=== PATIENT | male | born 1955 | race Caucasian/White ===

== ENCOUNTER 2020-09-05 21:52 | Observation (INO) | payer MEDICARE ==
[2020-09-05] MEDS ORDERED: HYDROmorphone 1 MG/ML 1 ML SYRINGE IVP STA (22:26)
[2020-09-05] MEDS ORDERED: SODIUM CHLORIDE 0.9% 1,000 ML IV STA (22:26)
[2020-09-05] MEDS ORDERED: ONDANSETRON 4 MG/2 ML VIAL IVP STA (22:26)
[2020-09-05 22:48] LABS: Basophils % (A) 1 %; Eosinophils # (A) 0.1 k/uL (0-0.7); Eosinophils % (A) 1 %; HCT 45.3 % (39.0-53.0); HGB 15.4 gm/dL (13.0-17.5); Lymphocytes # (A) 1.4 k/uL (1.0-4.8); Lymphocytes % (A) 16 %; MCH 33.3 pg (25.0-35.0); MCHC 33.9 g/dL (31.0-37.0); MCV 98.3 fL (80.0-100.0); Mean Platelet Volume 8.5; Monocytes # (A) 0.4 k/uL (0-1.0); Monocytes % (A) 5 %; Neutrophils # (A) 6.6 k/uL (1.3-7.7); Neutrophils % (A) 76 %; Platelet Count 210 k/uL (150-450); RBC 4.61 m/uL (4.30-5.90); RDW 12.6 % (11.5-15.5); WBC 8.7 k/uL (3.8-10.6)
[2020-09-05 23:04] LABS: ALT 19 U/L (4-49); AST 26 U/L (17-59); African American GFR (CKD) >90 (>60 ml/min/1.73 sqM); Albumin 4.6 g/dL (3.5-5.0); Alkaline Phosphatase 74 U/L (38-126); Anion Gap 12 mmol/L; Blood Urea Nitrogen 15 mg/dL (9-20); Calcium 9.7 mg/dL (8.4-10.2); Carbon Dioxide 22 mmol/L (22-30); Chloride 104 mmol/L (98-107); Glucose 119 mg/dL (74-99); Lipase 79 U/L (23-300); Non-African American GFR(CKD) >90 (>60 ml/min/1.73 sqM); Potassium 4.1 mmol/L (3.5-5.1); Sodium 138 mmol/L (137-145); Total Bilirubin 0.6 mg/dL (0.2-1.3); Total Protein 7.3 g/dL (6.3-8.2)
[2020-09-06 00:16] LABS: Amorphous Sediment,Urine Rare /hpf; Appearance,Urine Clear (Clear); Bilirubin,Urine Negative (Negative); Blood,Urine Negative (Negative); Color,Urine Light Yellow; Glucose,Urine (UA) Negative (Negative); Ketones,Urine 2+ (Negative); Leukocyte Esterase,Urine Trace (Negative); Nitrite,Urine Negative (Negative); Protein,Urine Negative (Negative); RBC,Urine 1 /hpf (0-5); Specific Gravity,Urine 1.023 (1.001-1.035); Urobilinogen,Urine <2.0 mg/dL (<2.0); WBC,Urine 7 /hpf (0-5)
--- NOTE | 2020-09-06 00:17 | CT ---
EXAMINATION TYPE: CT abdomen pelvis w con DATE OF EXAM: 09/05/2020 COMPARISON: None HISTORY: Abd Pain CT DLP: 549.80 mGycm Automated exposure control for dose reduction was used. CONTRAST: Performed with IV Contrast, patient injected with 100 mL of Isovue 300. Images obtained from the diaphragm to the floor the pelvis with IV contrast. Lung bases are clear of infiltrate. There is no pleural effusion. Heart size is normal. There is no p ericardial effusion. Liver spleen pancreas gallbladder appear intact. Bile ducts are not dilated. Stomach is large. There is no evidence of pancreatic mass. There is low density to centimeter left adrenal mass. Kidneys show satisfactory contrast opacificatio n. There is no hydronephrosis. There are multiple bilateral renal calculi that measure up to 7 mm. De layed images show normal renal excretion. Ureters are not dilated. There is no retroperitoneal adenop athy. Bladder distends smoothly. There is no inguinal hernia. There is no free fluid in the pelvis. There are some distended loops of jejunum in the upper abdomen with small bowel mesenteric fat strand ing. Small bowel measures up to 2.7 cm. The distal small bowel appears normal. Appendix appears ran l. Large bowel appears intact. The lumbar vertebra have normal alignment. Posterior elements are intact. Bony pelvis is intact. Sacr oiliac joints are intact. IMPRESSION: Small bowel mesenteric edema. Mildly distended fluid-filled loops of jejunum. This could relate to ga stroenteritis.
[2020-09-06] MEDS ORDERED: NALOXONE 0.4 MG/ML 1 ML VIAL IV PRN (00:39)
[2020-09-06] MEDS ORDERED: HYDROmorphone 1 MG/ML 1 ML SYRINGE IVP PRN (00:39)
[2020-09-06] MEDS ORDERED: ONDANSETRON 4 MG/2 ML VIAL IVP PRN (00:39)
--- NOTE | 2020-09-06 00:50 | ED ---
Abdominal Pain HPI - General Chief Complaint: Abdominal Pain Stated Complaint: ABD pain Time Seen by Provider: 09/05/20 22:07 Source: patient Mode of arrival: wheelchair Limitations: no limitations - History of Present Illness Initial Comments: 64 year-old male patient presents to the emergency department for evaluation for upper abdominal pain. Patient states pain started mildly at 10:00am. States it gradually worsened throughout the day. States pain is in the middle of the upper abdomen and radiates to right upper quadrant. He reports 5-6 episodes of vomiting. Denies any diarrhea or constipation. He is passing gas. Denies fevers, but states he is chilled. Denies history of abdominal surgery. States he does have history of colitis, but states that his is generally in the "very end of the colon". Patient denies any recent rash, cough, shortness of breath, chest pain, back pain, numbness, tingling, dizziness, weakness, hematuria, dysuria, ur inary urgency, urinary frequency, headache, visual changes, or any other complaints. - Related Data Home Medications Medication Instructions Recorded Confirmed Mesalamine [Lialda] 2.4 gm PO BID 09/05/20 09/05/20 Allergies Allergy/AdvReac Type Severity Reaction Status Date / Time pertussis vaccine,fluid Allergy Unknown Verified 09/05/20 22:34 Childhood Review of Systems ROS Statement: Those systems with pertinent positive or pertinent negative responses have been documented in the HPI. ROS Other: All systems not noted in ROS Statement are negative. Past Medical History Additional Past Medical History / Comment(s): colitis History of Any Multi-Drug Resistant Organisms: None Reported Past Surgical History: No Surgical Hx Reported Past Psychological History: No Psychological Hx Reported Smoking Status: Never smoker Past Alcohol Use History: Occasional Past Drug Use History: None Reported General Exam Limitations: no limitations General appearance: alert, in no apparent distress, other (Physical well- developed, well-nourished adult male patient in mild distress related to pain. Vital signs upon presentation temperature 98.0F will pulse 63, respirations 20, blood pressure 130/62, pulse ox 100% on room air.) Eye exam: Present: normal appearance, PERRL, EOMI. Absent: scleral icterus, conjunctival injection, periorbital swelling Respiratory exam: Present: normal lung sounds bilaterally. Absent: respiratory distress, wheezes, rales, rhonchi, stridor Cardiovascular Exam: Present: regular rate, normal rhythm, normal heart sounds. Absent: systolic murmur, diastolic murmur, rubs, gallop, clicks GI/Abdominal exam: Present: soft, tenderness (midepigastric), normal bowel sounds. Absent: distended, guarding, rebound, rigid Neurological exam: Present: alert, oriented X3, CN II-XII intact Psychiatric exam: Present: normal affect, normal mood Skin exam: Present: warm, dry, intact, normal color. Absent: rash Course Vital Signs 09/05/20 22:00 Temperature 98.0 F Pulse Rate 63 Respiratory 20 Rate Blood Pressure 130/62 O2 Sat by Pulse 100 Oximetry Medical Decision Making - Medical Decision Making 64 year-old male patient presenting to emergency department this evening for evaluation of midepigastric abdominal pain and vomiting. Upon arrival patient appears quite uncomfortable, shaking, sweating. Reports 5 episodes of vomiting. Physical exam revealed midepigastric and right upper quadrant tenderness. No guarding or rebound. Labs reviewed and showed normal WBC count. Elevated lactate at 3.1. No blood in the urine. CT abdomen and pelvis was obtained and showed distended jejunal loops and some mesenteric edema. Upon re-evaluation patient reports some improvement in symptoms, though still having pain. He will be admitted for repeat lactic acid and further evaluation by general surgery. I did discuss findings with the patient. He is agreeable to the plan. Case discussed with my attending Dr. Costa. - Lab Data Result diagrams: 09/05/20 22:26 09/05/20 22:26 Lab Results 09/05/20 09/05/20 09/05/20 Range/Units 22:26 22:26 22:26 WBC 8.7 (3.8-10.6) k/uL RBC 4.61 (4.30-5.90) m/uL Hgb 15.4 (13.0-17.5) gm/dL Hct 45.3 (39.0-53.0) % MCV 98.3 (80.0-100.0) fL MCH 33.3 (25.0-35.0) pg MCHC 33.9 (31.0-37.0) g/dL RDW 12.6 (11.5-15.5) % Plt Count 210 (150-450) k/uL MPV 8.5 Neutrophils % 76 % Lymphocytes % 16 % Monocytes % 5 % Eosinophils % 1 % Basophils % 1 % Neutrophils # 6.6 (1.3-7.7) k/uL Lymphocytes # 1.4 (1.0-4.8) k/uL Monocytes # 0.4 (0-1.0) k/uL Eosinophils # 0.1 (0-0.7) k/uL Basophils # 0.0 (0-0.2) k/uL Sodium 138 (137-145) mmol/L Potassium 4.1 (3.5-5.1) mmol/L Chloride 104 (98-107) mmol/L Carbon Dioxide 22 (22-30) mmol/L Anion Gap 12 mmol/L BUN 15 (9-20) mg/dL Creatinine 0.86 (0.66-1.25) mg/dL Est GFR (CKD-EPI)AfAm >90 (>60 ml/min/1.73 sqM) Est GFR (CKD-EPI)NonAf >90 (>60 ml/min/1.73 sqM) Glucose 119 H (74-99) mg/dL Plasma Lactic Acid Jovany 3.1 H* (0.7-2.0) mmol/L Calcium 9.7 (8.4-10.2) mg/dL Total Bilirubin 0.6 (0.2-1.3) mg/dL AST 26 (17-59) U/L ALT 19 (4-49) U/L Alkaline Phosphatase 74 (38-126) U/L Troponin I (0.000-0.034) ng/mL Total Protein 7.3 (6.3-8.2) g/dL Albumin 4.6 (3.5-5.0) g/dL Lipase 79 (23-300) U/L Urine Color Urine Appearance (Clear) Urine pH (5.0-8.0) Ur Specific Harrison (1.001-1.035) Urine Protein (Negative) Urine Glucose (UA) (Negative) Urine Ketones (Negative) Urine Blood (Negative) Urine Nitrite (Negative) Urine Bilirubin (Negative) Urine Urobilinogen (<2.0) mg/dL Ur Leukocyte Esterase (Negative) Urine RBC (0-5) /hpf Urine WBC (0-5) /hpf Amorphous Sediment (None) /hpf 07/30/21 07/30/21 Range/Units 22:28 22:34 WBC (3.8-10.6) k/uL RBC (4.30-5.90) m/uL Hgb (13.0-17.5) gm/dL Hct (39.0-53.0) % MCV (80.0-100.0) fL MCH (25.0-35.0) pg MCHC (31.0-37.0) g/dL RDW (11.5-15.5) % Plt Count (150-450) k/uL MPV Neutrophils % % Lymphocytes % % Monocytes % % Eosinophils % % Basophils % % Neutrophils # (1.3-7.7) k/uL Lymphocytes # (1.0-4.8) k/uL Monocytes # (0-1.0) k/uL Eosinophils # (0-0.7) k/uL Basophils # (0-0.2) k/uL Sodium (137-145) mmol/L Potassium (3.5-5.1) mmol/L Chloride (98-107) mmol/L Carbon Dioxide (22-30) mmol/L Anion Gap mmol/L BUN (9-20) mg/dL Creatinine (0.66-1.25) mg/dL Est GFR (CKD-EPI)AfAm (>60 ml/min/1.73 sqM) Est GFR (CKD-EPI)NonAf (>60 ml/min/1.73 sqM) Glucose (74-99) mg/dL Plasma Lactic Acid Jovany (0.7-2.0) mmol/L Calcium (8.4-10.2) mg/dL Total Bilirubin (0.2-1.3) mg/dL AST (17-59) U/L ALT (4-49) U/L Alkaline Phosphatase (38-126) U/L Troponin I <0.012 (0.000-0.034) ng/mL Total Protein (6.3-8.2) g/dL Albumin (3.5-5.0) g/dL Lipase (23-300) U/L Urine Color Light Yellow Urine Appearance Clear (Clear) Urine pH 8.0 (5.0-8.0) Ur Specific Harrison 1.023 (1.001-1.035) Urine Protein Negative (Negative) Urine Glucose (UA) Negative (Negative) Urine Ketones 2+ H (Negative) Urine Blood Negative (Negative) Urine Nitrite Negative (Negative) Urine Bilirubin Negative (Negative) Urine Urobilinogen <2.0 (<2.0) mg/dL Ur Leukocyte Esterase Trace H (Negative) Urine RBC 1 (0-5) /hpf Urine WBC 7 H (0-5) /hpf Amorphous Sediment Rare H (None) /hpf - Radiology Data Radiology results: report reviewed, image reviewed CT abdomen and pelvis was obtained with contrast. Report was reviewed in its entirety. Impression by Dr. De León reveal small bowel mesenteric edema. Mildly distended fluid-filled loops of jejunum. This could relate to gastroenteritis. Disposition Clinical Impression: Intractable abdominal pain Disposition: ADMITTED IP TO THIS [facility] Condition: Serious Referrals: None,Stated [Primary Care Provider] - 1-2 days Decision to Admit Reason: Admit from EC Decision Date: 09/06/20 Decision Time: 00:50
[2020-09-06] MEDS: SODIUM CHLORIDE 0.9% 1,000 ML IV SCH ×2 (01:21→11:55)
[2020-09-06 07:23] VITALS: BP 118/66; PULSE 74; RESP 16; TEMP 98
--- NOTE | 2020-09-06 08:47 | P.GSCN ---
History of Present Illness Consult date: 09/06/20 History of present illness: 64-year-old male presented to the emergency department with complaints of severe abdominal pain. He states most of the pain was in the epigastrium. He states it started approximately 10 AM yesterday and progressed throughout the day. He complains of multiple vomiting episodes and nausea as well that brought him into the hospital. He denies any significant changes in bowel function. He states that he does have a history of ulcerative colitis and does take daily mesalamine for treatment. He states he is from [place] and receives most of his medical care there. He states his last colonoscopy was 1 year ago without any significant findings. He denies any recent blood in his stool. On admission, lactic acidosis was noted slightly greater than 3. Repeat was drawn and is noted to be 1.0. He states on current exam that he is feeling 100% better. He denies any nausea or vomiting episodes. He denies any abdominal pain at this time. CT of the abdomen and pelvis revealed some mesenteric edema around the jejunum. Review of Systems All systems: negative Past Medical History Additional Past Medical History / Comment(s): colitis History of Any Multi-Drug Resistant Organisms: None Reported Past Surgical History: No Surgical Hx Reported Past Psychological History: No Psychological Hx Reported Smoking Status: Never smoker Past Alcohol Use History: Occasional Past Drug Use History: None Reported Medications and Allergies Home Medications Medication Instructions Recorded Confirmed Type Mesalamine [Lialda] 2.4 gm PO BID 09/05/20 09/05/20 History Allergies Allergy/AdvReac Type Severity Reaction Status Date / Time pertussis vaccine,fluid Allergy Unknown Verified 09/05/20 22:34 Childhood Surgical - Exam Osteopathic Statement: *. No significant issues noted on an osteopathic structural exam other than those noted in the History and Physical/Consult. Vital Signs Temp Pulse Resp BP Pulse Ox 98.0 F 63 20 130/62 100 09/05/20 22:00 09/05/20 22:00 09/05/20 22:00 09/05/20 22:00 09/05/20 22:00 - General well developed, no distress - ENT no hearing loss - Neck trachea midline - Abdomen Soft, nontender, nondistended, no rebound, no guarding - Psychiatric oriented to time, oriented to person, oriented to place Results - Labs 09/05/20 22:26 09/05/20 22:26 Abnormal Lab Results - Last 24 Hours (Table) 09/05/20 09/05/20 09/05/20 Range/Units 22:26 22:26 22:34 Glucose 119 H (74-99) mg/dL Plasma Lactic Acid Jovany 3.1 H* (0.7-2.0) mmol/L Urine Ketones 2+ H (Negative) Ur Leukocyte Esterase Trace H (Negative) Urine WBC 7 H (0-5) /hpf Amorphous Sediment Rare H (None) /hpf Diabetes panel 09/05/20 Range/Units 22:26 Sodium 138 (137-145) mmol/L Potassium 4.1 (3.5-5.1) mmol/L Chloride 104 (98-107) mmol/L Carbon Dioxide 22 (22-30) mmol/L BUN 15 (9-20) mg/dL Creatinine 0.86 (0.66-1.25) mg/dL Glucose 119 H (74-99) mg/dL Calcium 9.7 (8.4-10.2) mg/dL AST 26 (17-59) U/L ALT 19 (4-49) U/L Alkaline Phosphatase 74 (38-126) U/L Total Protein 7.3 (6.3-8.2) g/dL Albumin 4.6 (3.5-5.0) g/dL Calcium panel 09/05/20 Range/Units 22:26 Calcium 9.7 (8.4-10.2) mg/dL Albumin 4.6 (3.5-5.0) g/dL Pituitary panel 09/05/20 Range/Units 22:26 Sodium 138 (137-145) mmol/L Potassium 4.1 (3.5-5.1) mmol/L Chloride 104 (98-107) mmol/L Carbon Dioxide 22 (22-30) mmol/L BUN 15 (9-20) mg/dL Creatinine 0.86 (0.66-1.25) mg/dL Glucose 119 H (74-99) mg/dL Calcium 9.7 (8.4-10.2) mg/dL Adrenal panel 09/05/20 Range/Units 22:26 Sodium 138 (137-145) mmol/L Potassium 4.1 (3.5-5.1) mmol/L Chloride 104 (98-107) mmol/L Carbon Dioxide 22 (22-30) mmol/L BUN 15 (9-20) mg/dL Creatinine 0.86 (0.66-1.25) mg/dL Glucose 119 H (74-99) mg/dL Calcium 9.7 (8.4-10.2) mg/dL Total Bilirubin 0.6 (0.2-1.3) mg/dL AST 26 (17-59) U/L ALT 19 (4-49) U/L Alkaline Phosphatase 74 (38-126) U/L Total Protein 7.3 (6.3-8.2) g/dL Albumin 4.6 (3.5-5.0) g/dL Assessment and Plan Plan: 64-year-old male with abdominal pain that is improved along with CT finding of mesenteric edema. Patient states he is feeling 100% better and is not having any clinical signs of abdominal pain on physical exam or subjective exam. Patient does state that he would like to be discharged. At this point, I would recommend advancing the patient's diet to clear liquid diet and to advance as tolerated. Based on resolution of symptoms, patient is currently nonsurgical. I did recommend if symptoms like this were to occur again, patient also have a gallbladder workup, however this is not necessary at this time as the patient has had clinical resolution of his symptoms.
--- NOTE | 2020-09-29 01:09 | P.HPIM ---
History of Present Illness H&P Date: 09/06/20 Chief Complaint: Abdominal pain Patient is here 64-year-old man with a known history of colitis and occasional alcohol use presents to ER with the complaints of severe abdominal pain. Patient states that he started having severe abdominal pain around 10 AM yesterd ay and progressive throughout the day. Is worse with nausea and multiple episodes of vomiting which made him come to ER. Otherwise denied any hematemesis or melena. No complaints of recent diarrhea. Patient does have a history of ulcerative colitis and is taking mesalamine 2.5 g p.o. twice daily. Patient is from [place] and receives most of his care in [place]. Patient has been afebrile. Denied any recent illnesses. No chest pain or shortness of breath. CT of the abdomen pelvis on admission showed a small bowel mesenteric edema. Mildly distended fluid-filled loops of jejunum. This could relate to gastroenteritis. Laboratory data showed lactic acid level 3.1 and repeat level came down to 1.0 WBC 8.7 hemoglobin 15.4 and platelets 210 Sodium 138 potassium 4.1 chloride 104 BUN 15 and creatinine 0.86 Urinalysis is negative for infection. Blood pressure was 126/76 and pulse of 69 respiration 16 temperature afebrile and pulse ox 96% on room air. Review of Systems Constitutional: Patient denies any fever or chills . No generalized weakness or weight loss. Abdomen: Patient does have abdominal pain and intractable nausea and vomiting.. Cardiovascular: Patient denies any chest pain or short of breath no palpitations. Respiratory: patient denied any cough or sputum production. No shortness of breath Neurologic: Patient denied any numbness or tingling headache. Musculoskeletal: Patient denies any complaints of joint swelling or deformity. Skin: Negative Psychiatric: Negative Endocrine: No heat or cold intolerance. No recent weight gain. Genitourinary: No dysuria or hematuria. All other 14 point ROS negative except the above Past Medical History Additional Past Medical History / Comment(s): colitis History of Any Multi-Drug Resistant Organisms: None Reported Past Surgical History: No Surgical Hx Reported Past Psychological History: No Psychological Hx Reported Smoking Status: Never smoker Past Alcohol Use History: Occasional Past Drug Use History: None Reported Medications and Allergies Home Medications Medication Instructions Recorded Confirmed Type Mesalamine [Lialda] 2.4 gm PO BID 09/05/20 09/05/20 History Allergies Allergy/AdvReac Type Severity Reaction Status Date / Time pertussis vaccine,fluid Allergy Unknown Verified 09/05/20 22:34 Childhood Physical Exam Vitals: Vital Signs Temp Pulse Pulse Resp BP BP Pulse Ox 09/06/20 08:00 74 16 09/06/20 07:00 98.0 F 74 16 118/66 98 09/06/20 01:38 98.4 F 68 18 139/80 95 09/06/20 00:50 66 16 126/76 96 09/05/20 22:00 98.0 F 63 20 130/62 100 Intake and Output 09/05/20 09/06/20 09/06/20 22:59 06:59 14:59 Intake Total 100 Balance 100 Intake: Oral 100 Other: Voiding Method Toilet Toilet # Voids 1 Weight 54.431 kg 54.431 kg PHYSICAL EXAMINATION: Patient is lying in the bed comfortably, no acute distress, awake alert and oriented.. HEENT: Normocephalic. Neck is supple. Pupils reactive. Nostrils clear. Oral c avity is moist. Ears reveal no drainage. Neck reveals no JVD, carotid bruits, or thyromegaly. CHEST EXAMINATION: Trachea is central. Symmetrical expansion. Lung bay clear to auscultation and percussion. CARDIAC: Normal S1, S2 with no gallops. No murmurs ABDOMEN: Soft. Bowel sounds normal. No organomegaly. No abdominal bruits. Extremities: reveal no edema. No clubbing or cyanosis Neurologically awake, alert, oriented x3 with well-coordinated movements. No focal deficits noted Skin: No rash or skin lesions. Psychiatric: Coperative. Nonsuicidal Musculoskeletal: No joint swelling or deformity. Normal range of motion. Results CBC & Chem 7: 09/05/20 22:26 09/05/20 22:26 Labs: Abnormal Lab Results - Last 24 Hours (Table) 09/05/20 09/05/20 09/05/20 Range/Units 22:26 22:26 22:34 Glucose 119 H (74-99) mg/dL Plasma Lactic Acid Jovany 3.1 H* (0.7-2.0) mmol/L Urine Ketones 2+ H (Negative) Ur Leukocyte Esterase Trace H (Negative) Urine WBC 7 H (0-5) /hpf Amorphous Sediment Rare H (None) /hpf Thrombosis Risk Factor Assmnt - Choose All That Apply Each Risk Factor Represents 2 Points: Age 61-74 years Thrombosis Risk Factor Assessment Total Risk Factor Score: 2 Thrombosis Risk Factor Assessment Level: Low Risk Assessment and Plan Assessment: Severe abdominal pain with CT evidence of mesenteric edema. Epigastric abdominal pain. Intractable nausea and vomiting. Ulcerative colitis currently on mesalamine. DVT prophylaxis with heparin subcu Plan: Patient will require none pain management, IV fluids and continue to follow closely. Repeat lactic acid came down to 1.0. Symptomatically improving. General surgery has seen the patient recommends gallbladder work-up if the patient symptoms recurs. Continue to follow closely.
--- NOTE | 2020-09-29 01:13 | P.DS ---
Providers Date of admission: 09/06/20 00:29 Expected date of discharge: 09/06/20 Attending physician: Ana Zhou Consults: 09/06/20 00:39 Consult Physician Routine Consulting Provider: Mary Mckinnon Consult Reason/Comments: mesenteric edema; intractable abdominal pain; lactic acidosis Do you want consulting provider notified?: Yes Primary care physician: Stated None Hospital Course: Discharge diagnosis Severe abdominal pain with CT evidence of mesenteric edema. Epigastric abdominal pain. Intractable nausea and vomiting. Acute gastroenteritis Ulcerative colitis currently on mesalamine. DVT prophylaxis with heparin subcu Hospital course Patient is here 64-year-old man with a known history of colitis and occasional alcohol use presents to ER with the complaints of severe abdominal pain. Patient states that he started having severe abdominal pain around 10 AM yesterday and progressive throughout the day. Is worse with nausea and multiple episodes of vomiting which made him come to ER. Otherwise denied any hematemesis or melena. No complaints of recent diarrhea. Patient does have a history of ulcerative colitis and is taking mesalamine 2.5 g p.o. twice daily. Patient is from [place] and receives most of his care in [place]. Patient has been afebrile. Denied any recent illnesses. No chest pain or shortness of breath. CT of the abdomen pelvis on admission showed a small bowel mesenteric edema. Mildly distended fluid-filled loops of jejunum. This could relate to gastroenteritis. Laboratory data showed lactic acid level 3.1 and repeat level came down to 1.0 WBC 8.7 hemoglobin 15.4 and platelets 210 Sodium 138 potassium 4.1 chloride 104 BUN 15 and creatinine 0.86 Urinalysis is negative for infection. Blood pressure was 126/76 and pulse of 69 respiration 16 temperature afebrile and pulse ox 96% on room air. Patient was continued on pain management, IV fluids and continue to follow closely. Repeat lactic acid came down to 1.0. Symptomatically improved. General surgery has seen the patient recommends gallbladder work-up if the patient symptoms recurs. Patient would like to be discharged home. Discharge Physical examination was done and vitals reviewed. Patient Condition at Discharge: Good Plan - Discharge Summary New Discharge Prescriptions: Continue RX: Mesalamine [Lialda] 2.4 gm PO BID Discharge Medication List RX: Mesalamine [Lialda] 2.4 gm PO BID 09/05/20 [History] Follow up Appointment(s)/Referral(s): None,Stated [Primary Care Provider] - 1-2 days Patient Instructions/Handouts: Soft Diet (DC), Clear Liquid Diet (DC), Full Liquid Diet (DC) Discharge Disposition: HOME SELF-CARE
== END 2020-09-06 12:12 | disposition home or self-care (01) ==
LOC: EC 21:52 → 6NMEDSUR 09-06 00:29
PROVIDERS: ADMIT Hospitalist; ATTEND Hospitalist
DX: K51.90 Ulcerative colitis, unspecified, without complications (principal); K52.9 Noninfective gastroenteritis and colitis, unspecified; Z79.899 Other long term (current) drug therapy; Z88.7 Allergy status to serum and vaccine
CPT/HCPCS: 96361; 96374; 96375; 99285; 36415; 93005; 80053; 83605 ×2; 83690; 84484; 85025; 81001; 74177; G0378; J2405; J1170; Q9967; 99284